=== PATIENT | female | born 1985 | race Caucasian/White ===

== ENCOUNTER 2023-05-07 11:03 | Outpatient (CLI) | payer OTHER, SELFPAY ==
--- NOTE | 2023-05-07 11:41 | ECG_ITS ---
Measurements Intervals [place] Rate: 56 P: 72 VT: 135 QRS: 62 QRSD: 91 T: 47 QT: 435 QTc: 422 Interpretive Statements SINUS BRADYCARDIA BORDERLINE ECG NO PREVIOUS ECG AVAILABLE FOR COMPARISON Electronically Signed On 05-07-2023 15:38:53 NAILHEAD PUNCHER by Edgard Buchanan D.O.
[2023-05-07 12:09] LABS: Hematocrit 41.8 % (37.0-47.0); Hemoglobin 14.3 g/dL (12.0-15.0); Mean Corpuscular HGB Conc 34.2 g/dl (32-36); Mean Corpuscular Hemoglobin 31.7 pg (26-34); Mean Corpuscular Volume 92.7 fl (80-100); Mean Platelet Volume 10.3 fl (7.4-10.4); Platelet Count Result 216 k/mm3 (150-375); Red Blood Count 4.51 M/mm3 (4.2-5.4); Red Cell Distribution Width 12.3 % (11.5-14.5); White Blood Count 4.4 K/mm3 (4.5-10.0)
[2023-05-07 12:14] LABS: Albumin Level 4.3 g/dL (3.5-5.1); Anion Gap 9 mmol/L (8-16); Blood Urea Nitrogen 18 mg/dL (7-17); Calcium 9.2 mg/dL (8.4-10.2); Carbon Dioxide 29 mmol/L (22-30); Chloride 102 mmol/L (98-107); Estimated Glomerular Filt Rate > 60; Glucose 73 mg/dL (65-110); Sodium 140 mmol/L (137-145)
[2023-05-07 12:18] LABS: Iron 129 ug/dL (37-170)
[2023-05-07 13:13] LABS: Prealbumin 24.8 mg/dL (17.6-36.0)
[2023-05-11 13:09] LABS: Vitamin B1 49 nmol/L (8-30)
== END 2023-05-07 11:04 | disposition home or self-care (01) ==
LOC: ANHLAB 11:08
PROVIDERS: Visit Provider Surgery Plastic and Reconstructive Surgery
DX: R63.4 Abnormal weight loss (principal); N64.81 Ptosis of breast
CPT/HCPCS: 36415; 80048; 82040; 83540; 84134; 84425; 85027; 93005

== ENCOUNTER 2023-05-13 03:10 | Day surgery (SDC) | payer OTHER, SELFPAY ==
[2023-05-03 17:28] VITALS: BMI 24.1
--- NOTE | 2023-05-03 17:41 | PC.NURSE ---
Report to the Outpatient Waiting Room, entrance under the green pavilion located off [facility], at time 07:00AM on date 05-13-23. Planned Procedure Time: 09:00AM. Time changes happen often and if your time is changed the preop area will call you the afternoon before. - You and your visitor will be asked to self-screen and do not enter if you have any COVID symptoms. - A mask is optional within the hospital at this time. Patients may have clear liquids (water, carbonated beverages, clear teas, apple juice) until 3 hours prior to surgery (06:00AM) with a maximum of 20 ounces. - No food from midnight until time of surgery Take the following medications with a SIP of water the morning of surgery: THYROID MED DO NOT STOP ANY OF YOUR OTHER PRESCRIPTION MEDICATIONS PRIOR TO SURGERY ?EXCEPT THE FOLLOWING Medications to discontinue per physician VITAMINS Date to take last dose 05-09-23 Please no make-up, nail belarusian, hairspray, perfume, deodorant, or body powder the day of surgery. No jewelry (including any body piercings) or valuables the day of surgery, leave them at home. Please take a shower or bath the night before, or the morning of, surgery with an antibacterial soap. Wear comfortable, loose fitting clothing. - Jewelry must be removed prior to entering the operating room. Rings and piercings that are not removed may be cut off. - The hospital will not accept responsibility for valuables. - Please leave all valuables, including medications, at home the day of surgery. If you are going home after surgery, a licensed explosives truck driver must drive you home. - NO public transportation without another adult if you receive anesthesia. - We recommend that an adult stay with you for 24 hours following discharge. - We also recommend that you do not drive, make important decision, drink alcoholic beverages, or take any drugs that were not prescribed by your health care provider for at least 24 hours after your discharge time. Follow any additional instructions given to you from your surgeon. If you or anyone in your household have experienced Covid symptoms in the past week, please notify your surgeon or the nurse liaison at the phone number below for possible testing. Telephone instructions given to PATIENT and asked if any additional questions and then verbalized understanding. Patient advised to call surgeon office or pre surgery nurse liaison [phone] if any additional questions.
[2023-05-13] VITALS (17 sets, daily range): BP systolic 99–134; BP diastolic 57–81; PULSE 51–96; RESP 12–18; TEMP 36.3–37; O2SAT 97–100
[2023-05-13] MEDS: LACTATED RINGERS 1,000 ML 30 ML IV CONT ×2 (07:50→15:17)
[2023-05-13 07:57] LABS: Urine Cotinine NEGATIVE
--- NOTE | 2023-05-13 09:03 | P.PNAN_ITS ---
Anes - Initial Pre Proc Eval Procedure: Operation Date: 05/13/23 09:00 Proposed Procedures p Yohana vega Abdominoplasty - Theo Randhawa MD s Bilateral Breast Augmentation with Mastopexy and Galaflex - Theo Randhawa MD Date/Time: 05/13/23 09:03 Surgeon: Theo Randhawa MD Pre Op Diagnosis: Skin Laxity, Breast Ptosis Patient Data Age: 38 Gender: F Height: 1.7 m Weight: 73.9 kg Last Vital Signs Temp 97.4 F L 05/13/23 07:30 Pulse 56 L 05/13/23 07:30 Resp 16 05/13/23 07:30 BP 118/65 05/13/23 07:30 Pulse Ox 100 05/13/23 07:30 O2 Del Method Room Air 05/13/23 07:30 Allergies Allergy/AdvReac Type Severity Reaction Status Date / Time No Known Allergies Allergy Verified 05/13/23 08:00 Home Medications Medication Instructions Recorded Confirmed Type chlorthalidone 25 mg tablet 25 mg PO DAILY 05/03/23 05/13/23 History cholecalciferol (vitamin D3) 1,250 1,250 mcg PO DAILY 05/03/23 05/13/23 History mcg (50,000 unit) tablet digestive enzymes 2 cap PO DAILY 05/03/23 05/13/23 History levothyroxine 175 mcg tablet 175 mcg PO DAILY 05/03/23 05/13/23 History magnesium gluconate 27 mg 27 mg PO BID 05/03/23 05/13/23 History magnesium (500 mg) tablet vitamin B complex 1 cap PO DAILY 05/03/23 05/13/23 History Laboratory Tests 05/13/23 07:41 Cotinine Negative Patient hx anesthesia problems: none Family hx anesthesia problems: none Results Review: All pre-operative results and documents have been reviewed as part of the pre- operative evaluation. PMF Social History Social History Smoking status: Never smoker Second hand tobacco smoke exposure: No Alcohol intake: current Drinks per week: 2 Substance use: never Substance use type: does not use Living arrangements: with family Spiritual care concerns: No Anes - Eval Final PreProcedure Day of Procedure 05/13/23 09:03 Patient weight: normal Heart: regular rate and rhythm Lungs: clear to auscultation Airway: Mallampati scale class II Neurological: alert and oriented Last oral intake: >/= 8 hours ASA classification: II Emergent: no Anesthetic plan: proceed Anesthesia type and monitoring: general ETT and standard monitoring Results Review: All pre-operative results and documents have been reviewed as part of the pre- operative evaluation. Informed Consent: The patient's anesthetic plan and its attendant risks and benefits were discussed with the patient/family/POA. Questions were solicited and answers provided to the satisfaction of the patient/family/POA.
--- NOTE | 2023-05-13 09:15 | WPDHPUPDATE1 ---
History and Physical Update Update Date/Time: 05/13/23 09:15 History and Physical has been reviewed, including an updated exam of the patient. There are NO changes in the patient's condition. Risks, benefits, and alternatives have been discussed and questions answered. Patient agrees to proceed with procedure.
--- NOTE | 2023-05-13 09:15 | W.PM.PROC2 ---
Procedure Note - Detailed Date of Procedure 05/13/23 Pre-op Diagnosis Skin Laxity, Breast Ptosis Post-op Diagnosis Same Procedure Performed 1. Bilateral augmentation mastopexy with Galaflex 2. Gregg abdominoplasty Surgeon Theo Randhawa MD Anesthesia General Findings Bilateral [place] SoftTouch Silicone implants 485 cc Right - REF# [id number] Left - REF# [id number] SN [id number] Galaflex REF# [id number] Tissue removed: 1278.2 grams Description of Procedure They are here today for the above procedures. Previously and again today the risks, benefits, alternatives were discussed in extensive detail. I wanted them to be very realistic about the risks involved as well as expectations. We discussed aftercare and what to monitor for. I was very upfront about the risks of wound breakdown leading to loss of skin, open wounds, and need for additional procedures with permanent abdominal deformity. We discussed DVT/PE risks and management. Made sure answered all of their questions to their satisfaction today and consent was obtained. Marked in the preoperative holding area with their verification. The patient was taken to the operating room placed supine on the operating table. Anesthesia was provided by anesthesiology. A Conti catheter was started. A surgical time-out was taken. Breast We cleansed the skin and 1% lidocaine and 0.25% Marcaine with epinephrine was used anesthetize as a field block. She was prepped and draped in a standard sterile fashion. Tegaderm nipple Cope were placed. A 15 blade used to make an incision just superior to the inframammary fold leaving a cusp of de-epithelized tissue at the t junction. Dissection was continued until the chest wall as identified. I incised the pectoralis major along its inferior border and completely released the inferior border leaving the medial border intact. I created a subpectoral pocket in the appropriate dimensions based on our preoperative planning for the implant. I then copiously irrigated with saline solution and verified a strict hemostasis. Next the use a triple antibiotic and Betadine containing solution to irrigate the pocket. I washed my gloves with the triple antibiotic and Betadine solution. We washed the implant immediately upon opening it with this solution and only opened it when we needed it. I used implant funnel and no-touch technique. The implant was introduced into the pocket using the funnel. Having verified positioning of the implant this was closed using 2-0 PDS. I tailor tacked the breast into position. Placed her in a sitting position. Verified the nipple-areolar location based on preoperative planning as well as intraoperative observations and measurements in full agreement. She was placed supine. I de-epithelialized the pedicle. I then removed the inferior central portion of the breast need making sure the implant was well protected. I elevated medial and lateral tissue flaps as well for planned closure. Galaflex was soaking in the betadine solution. Trimmed and sutured into place with 2-0 Vicryl. I closed along the IMF with 2-0 Stratafix. Along the vertical with 2-0 PDS. I closed around the areola with 3-0 strata fix. 3-0 Monocryl along the vertical. 3-0 Stratafix along the IMF. I finally closed everything with running subcuticular 4-0 Monocryl and tissue glue. Abdomen I placed the patient in a flexed position to verify the upper and lower markings would reach. I then placed supine. A thorough abdominal examination was completed. Stab incisions were made and tumescent solution infiltrated. A liposuction basket cannula was utilized to provide discontinuous undermining. A 10 blade was used to make the vertical incision. This was to the level of the fascia. A 10 blade was also utlizied to make the lower incision and elevate just what was clearly resectable. At the umbilicus this was left in place with a well vas
[2023-05-13] MEDS: LIDO 1%/EPINEPHRINE 1:100,000 50 ML VIAL 30 ML INFILTRATE (09:33)
[2023-05-13] MEDS: BUPIVACAINE/EPINEPHRINE 0.5% 50 ML VIAL 60 ML INFILTRATE (09:33)
[2023-05-13] MEDS: ceFAZolin 2 GM/D5W 50 ML 2 GM/50 ML BAG IVPB (09:33)
[2023-05-13] MEDS: LACTATED RINGERS IRRIG 1,000 ML, LIDOCAINE HCL 1% LOCAL INJ 50 ML, EPINEPHrine HCL INJ ... INFILTRATE (09:33)
[2023-05-13] MEDS: BUPivacaine HCL 0.25% PF 30 ML VIAL INFILTRATE (09:33)
[2023-05-13] MEDS: NACL 0.9% IRRIG POUR BOTTLE 900 ML, GENTAMICIN SULFATE INJ 160 MG, ceFAZolin 2 GM, POVI... IRRIGATION (09:33)
[2023-05-13] MEDS: TRANEXAMIC ACID 1,000MG/ISO100 1,000 MG/100 ML BAG 200 MG IVPB (09:47)
[2023-05-13] MEDS: ceFAZolin SODIUM 1 GM VIAL IV PUSH (13:26)
--- NOTE | 2023-05-13 15:15 | SUR.OPER ---
300mL of clear yellow urine drained from hopkins catheter
[2023-05-13] MEDS: SCOPOLAMINE 1.5 MG PATCH TRANSDERM (15:17)
[2023-05-13] MEDS: fentaNYL CITRATE INJ (*CRX) 100 MCG/2 ML VIAL 25 MCG IV PUSH ×7 (15:38→17:09)
[2023-05-13] MEDS: diphenhydrAMINE HCl INJ 50 MG/ML VIAL 25 MG IV PUSH (16:03)
[2023-05-13] MEDS: KETOROLAC 15 MG/ML VIAL (*BKC) IV PUSH (17:23)
[2023-05-13] MEDS: ONDANSETRON INJ 4 MG/2 ML VIAL IV PUSH (19:19)
--- NOTE | 2023-05-13 19:25 | PC.NURSE ---
This patient, Rachell Iyer, was received from PACU per wheelchair to room 289. Patient/family oriented to unit policies and routines
[2023-05-13] MEDS: oxyCODONE/ACETAMINOPHEN (*CRX) 5-325 MG TABLET PO (22:31)
[2023-05-13] MEDS: ENOXAPARIN 40 MG/0.4 ML SYRINGE SUB-Q (22:32)
[2023-05-14 00:38] VITALS: BP 113/63; PULSE 58; RESP 18; TEMP 37.2; O2SAT 98
[2023-05-14] MEDS: carisoprodoL (*CRX) 350 MG TABLET PO ×2 (00:38→07:03)
[2023-05-14] MEDS: KETOROLAC 10 MG TABLET PO ×2 (00:56→07:02)
[2023-05-14] MEDS: MORPHINE SULFATE (*CRX) 2 MG/ML INJ IV PUSH ×2 (03:44→09:31)
[2023-05-14] MEDS: oxyCODONE/ACETAMINOPHEN (*CRX) 5-325 MG TABLET PO (05:26)
[2023-05-14] MEDS: LEVOTHYROXINE SODIUM 75 MCG TABLET PO (07:02)
[2023-05-14] MEDS: LEVOTHYROXINE SODIUM 100 MCG TABLET PO (07:02)
[2023-05-14 07:08] VITALS: BP 100/56; PULSE 50; RESP 20; TEMP 36.8; O2SAT 96
--- NOTE | 2023-05-14 07:31 | WPDPN ---
Progress Note: A&P Assessment and Plan (1) Micromastia: Code(s): N64.82 - Hypoplasia of breast Status: Acute Assessment and Plan: Doing well after bilateral augmentation mastopexy and progressive tension abdominoplasty . Will discharge home. Today we had a lengthy discussion about the care. Activity limitations. What to monitor for. What is an emergency and when to dial 911 / proceed to the ER. This was a lengthy open ended conversation making sure they were well informed. Answered all their questions. They voiced a clear understanding. Will discharge home. Call with any questions or concerns in the meantime. (2) Breast ptosis: Code(s): N64.81 - Ptosis of breast Status: Acute (3) Skin laxity: Code(s): L57.4 - Cutis laxa senilis Status: Acute (4) History of weight loss: Code(s): Z87.898 - Personal history of other specified conditions Status: Acute Subjective Date/time seen: 05/14/23 07:31 Interval history: Doing well after bilateral augmentation mastopexy and progressive tension abdominoplasty. Ambulating. Pain controlled. No nausea / vomiting. No fevers / chills. No shortness of breast. No chest pain. No calf tenderness. Yesterday she was slow to wake up and elected to stay overnight. Has done well since. Review of Systems Review of Systems: All systems reviewed & are unremarkable except as noted in HPI and below Exam Narrative: Alert & Oriented NOD Respiratory unlabored Bilateral breasts are healing well. No signs of infection. No hematoma. No seroma. Good color and capillary refill. Abdomen healing well. No signs of infection. No hematoma. No seroma. Good color and capillary refill. No calf tenderness. Negative Bakari's Objective Data Vital Signs Vital Signs: Vital Signs - 24 hr 05/13/23 15:17 05/13/23 15:30 05/13/23 15:45 Temperature 36.9 C Pulse Rate 96 95 61 Respiratory Rate 18 18 12 Blood Pressure 128/75 133/78 133/73 Pulse Oximetry 100 100 100 Oxygen Delivery Simple Face Mask Simple Face Mask Simple Face Mask Oxygen Flow Rate 8 8 8 05/13/23 16:00 05/13/23 16:15 05/13/23 16:30 Temperature Pulse Rate 69 67 62 Respiratory Rate 12 12 12 Blood Pressure 119/80 134/68 127/73 Pulse Oximetry 100 100 99 Oxygen Delivery Simple Face Mask Room Air Room Air Oxygen Flow Rate 8 05/13/23 16:45 05/13/23 17:00 05/13/23 17:15 Temperature Pulse Rate 60 63 75 Respiratory Rate 12 13 18 Blood Pressure 129/80 129/72 132/81 Pulse Oximetry 99 98 98 Oxygen Delivery Room Air Room Air Room Air Oxygen Flow Rate 05/13/23 17:30 05/13/23 17:45 05/13/23 18:00 Temperature Pulse Rate 69 60 65 Respiratory Rate 12 12 12 Blood Pressure 118/71 122/70 118/72 Pulse Oximetry 98 97 98 Oxygen Delivery Room Air Room Air Room Air Oxygen Flow Rate 05/13/23 18:15 05/13/23 18:23 05/13/23 18:50 Temperature Pulse Rate 61 65 60 Respiratory Rate 14 16 14 Blood Pressure 116/67 99/66 L 100/65 Pulse Oximetry 98 Oxygen Delivery Room Air Room Air Room Air Oxygen Flow Rate 05/13/23 19:45 05/14/23 00:38 05/14/23 07:08 Temperature 37.0 C 37.2 C 36.8 C Pulse Rate 51 L 58 L 50 L Respiratory Rate 16 18 20 Blood Pressure 100/57 L 113/63 100/56 L Pulse Oximetry 99 98 96 Oxygen Delivery Oxygen Flow Rate Intake/Output Intake/Output: Intake & Output 05/11/23 05/12/23 05/13/23 05/14/23 23:59 23:59 23:59 23:59 Intake Total 750 700 Output Total 30 125 Balance 720 575 Meds/Results Medications: Active Medications Generic Name Dose Route Start Last Admin Trade Name Grahamq PRN Reason Stop Dose Admin Carisoprodol 350 mg 05/13/23 19:25 05/14/23 07:03 Carisoprodol (*Crx) 350 Mg Tablet PO 350 mg Q6HR DAYNE Administration Chlorthalidone 25 mg 05/14/23 09:00 Chlorthalidone 25 Mg Tablet PO DAILY DAYNE Diazepam 5 mg 05/13/23 18:48 Diazepam (*Crx) 5 Mg Tablet PO
--- NOTE | 2023-05-14 07:34 | PM.DS ---
DS: Admitting Diagnosis Discharge Date 05/14/2023 Admitting Diagnosis 1. Micromastia 2. Breast ptosis 3. Skin laxity 4. History weight loss DS: Discharge Diagnosis Discharge Diagnosis (1) Micromastia: Code(s): N64.82 - Hypoplasia of breast Status: Acute (2) Breast ptosis: Code(s): N64.81 - Ptosis of breast Status: Acute (3) Skin laxity: Code(s): L57.4 - Cutis laxa senilis Status: Acute (4) History of weight loss: Code(s): Z87.898 - Personal history of other specified conditions Status: Acute DS: Summary Hospital Course Hospital Course: Post-op bilateral augmentation mastopexy and progressive tension abdominoplasty patient was slow to wake and elected to stay overnight. Since this time has done well. Ambulating. Pain controlled. Tolerating diet. Will discharge home. Time Spent with Patient Time attestation: Total time spent providing and/or coordinating discharge services: Exam Narrative: Alert & Oriented NOD Respiratory unlabored Bilateral breasts are healing well. No signs of infection. No hematoma. No seroma. Good color and capillary refill. Abdomen healing well. No signs of infection. No hematoma. No seroma. Good color and capillary refill. No calf tenderness. Negative Bakari's DS: Data Data Completed and Pending Labs on day of discharge: Labs from last 24 hours 05/13/23 07:41 Cotinine Negative Discharge Plan Discharge Patient Disposition: Home, Self-Care Discharge Instructions: POST OPERATIVE DISCHARGE INSTRUCTIONS THEO RANDHAWA M.D. [facility] PLASTIC SURGERY [facility] [place] [address] [address] for 24 hours after anesthesia and while you are taking pain medication. Take all prescribed medication as directed Diet as tolerated. No lifting or activity that raises blood pressure for 48 hours. Regular walking / ambulation. May shower 24 hours after surgery. Once you shower do not take pain medication before showering as the combination of medication and heat may cause you to feel dizzy or pass out. No pools or tubs for 2 weeks. Slowly stand up straight as tolerated. No straining or lifting more than 20 pounds. If no bowel movement within 24 hours may use laxative. Call with any questions or concerns. Dressing Care: Continue abdominal binder / foam and surgical bra 23 hours per day. Remove the Scopolamine patch that was placed behind your ear in 72 hours or less. Wash your hands after touching. If you have any questions or concerns, please call the office . If it is after hours you will be directed to the tank wagon operator exchange. Shortness of breath, chest pain, or other medical emergency dial 911 / proceed to the Emergency Room. Remove the Scopolamine patch that was placed behind your ear in 72 hours or less. Wash your hands after touching. Stand Alone Forms: General Discharge Instructions Follow-up/Referrals: Theo Randhawa MD [Physician] - Other (Tomorrow 05/14/2023) Discharge Medications: Continued levothyroxine 175 mcg tablet 175 mcg PO DAILY Patient Comments: DOES NOT TAKE ON SUNDAYS digestive enzymes Capsule 2 cap PO DAILY chlorthalidone 25 mg tablet 25 mg PO DAILY vitamin B complex Capsule 1 cap PO DAILY magnesium gluconate 27 mg magnesium (500 mg) Tablet 27 mg PO BID cholecalciferol (vitamin D3) 1,250 mcg (50,000 unit) Tablet 1,250 mcg PO DAILY
[2023-05-14] MEDS: CHLORTHALIDONE 25 MG TABLET PO (08:28)
[2023-05-14] MEDS: DOCUSATE SODIUM 100 MG CAPSULE PO (08:28)
--- NOTE | 2023-05-14 10:45 | PC.NURSE ---
Patient's OSITO drain removed, slight resistance noted. Patient reported feeling small pop on left hand side but no bruising/swelling noted at site. Spoke with Dr. Hanson nurse about incident. Nurse agreed that as long as no swelling or significant changes in site were noted then patient was still okay to discharge. Spoke with patient about s/sx to watch for and to notify physicians office if any occur. Patient's drain site was reinforced with a 4x4 gauze and paper tape to minimize bleeding and patient was sent with extra supplies home.
--- NOTE | 2023-05-14 10:51 | WPDANESPN ---
Anes - Prog Note Post-Op Date/Time: 05/14/23 10:51 Cardiovascular status: normal Respiratory status: normal Airway patency: baseline Mental status: baseline Post-Op hydration status: normal Vital Signs: Last Vital Signs Temp 98.3 F 05/14/23 07:08 Pulse 50 L 05/14/23 07:08 Resp 20 05/14/23 07:08 BP 100/56 L 05/14/23 07:08 Pulse Ox 96 05/14/23 07:08 O2 Del Method Room Air 05/13/23 18:50 O2 Flow Rate 8 05/13/23 16:00 Pain Score (VAS): 2 I/O: Intake & Output 05/13/23 05/14/23 05/14/23 23:59 07:59 15:59 Intake Total 750 700 Output Total 30 125 Balance 720 575 Post-procedural complaints: none and other (pt verbalized difficulty with waking after surgery. states she did not wake up until nearly 2200.) Patient Feedback: Patient satisfied with anesthetic care.
== END 2023-05-14 10:52 | disposition home or self-care (01) ==
LOC: ANHSURGERY 15:35 → ANHOB2 19:19
PROVIDERS: PCP Family Medicine; Visit Provider Surgery Plastic and Reconstructive Surgery
PROC: (CPT 19325; principal; 2023-05-13 09:00)
PROC: (CPT 19325; 2023-05-13 09:00)
DX: Z41.1 Encounter for cosmetic surgery (principal); N64.81 Ptosis of breast; L57.4 Cutis laxa senilis; N64.82 Hypoplasia of breast; E03.9 Hypothyroidism, unspecified
CPT/HCPCS: 19325; 19316; 15777 ×2; 15830; 15847; 80307; 99199; A9270; J0171; J0690; J1100; J1170; J1200; J1580; J1650; J1885; J2250; J2270; J2405; J2704; J3010; J7120

== ENCOUNTER 2024-02-18 02:08 | Day surgery (SDC) | payer OTHER, SELFPAY ==
--- NOTE | 2024-02-11 16:01 | PC.NURSE ---
Report to the Outpatient Waiting Room, entrance under the green pavilion located off [facility], at time 0600 on date 02/18/24. Planned Procedure Time: 0730.? Time changes happen often and if your time is changed the preop area will call you the afternoon before. - You and your visitor will be asked to self-screen and do not enter if you have any COVID symptoms. Please call surgeon if you need to reschedule. - A mask is optional within the hospital at this time. Patients may have clear liquids (water, carbonated beverages, clear teas, apple juice) until 3 hours prior to surgery with a maximum of 20 ounces. 0430 - No food from midnight until time of surgery and no smoking - Infants may have breast milk until 4 hours before surgery, infant formula 6 hours prior to surgery. - Children will be allowed to drink immediately following surgery.? If applicable, please bring a bottle or sippy cup to assist with drinking. Juice, water, soda, and popsicles are readily available.? For infants on formula, please bring formula the day of surgery.? Pacifiers are allowed. Take only the following medications with a SIP of water on the morning of surgery levothryroxine DO NOT STOP ANY OF YOUR OTHER PRESCRIPTION MEDICATIONS PRIOR TO SURGERY EXCEPT THE FOLLOWING Medications to discontinue per physician multivitamins & supplements- hold for 3 days prior to surgery, hydrochlorothiazide- hold morning of surgery Please no make-up, nail estonian, hairspray, perfume, deodorant, or body powder the day of surgery.? No jewelry (including any body piercings) or valuables the day of surgery, leave them at home.? Please take a shower or bath the night before, or the morning of, surgery with an antibacterial soap.? Wear comfortable, loose fitting clothing.? Children are encouraged to wear pajamas. - Jewelry must be removed prior to entering the operating room.? Rings and piercings that are not removed may be cut off. - The hospital will not accept responsibility for valuables.? - Please leave all valuables, including medications, at home the day of surgery. If you are going home after surgery, a licensed transporter driver must drive you home.? - NO public transportation without another adult if you receive anesthesia. - We recommend that an adult stay with you for 24 hours following discharge. - We also recommend that you do not drive, make important decision, drink alcoholic beverages, or take any drugs that were not prescribed by your health care provider for at least 24 hours after your discharge time. For Pediatric surgeries, we recommend two adults accompany the child home. Follow any additional instructions given to you from your surgeon. Telephone instructions given to Patient- Rachell Iyer and asked if any additional questions and then verbalized understanding. Patient advised to call surgeon office or pre surgery nurse liaison [phone] if any additional questions.
[2024-02-11 16:09] VITALS: BMI 24.5
--- NOTE | 2024-02-17 10:57 | WPDANESEPPF ---
Anes - Initial Pre Proc Eval Procedure: Operation Date: 02/18/24 07:30 Proposed Procedures p Left Breast Popcorn Capsulorrhaphy, Revision Inframammary Fold, Possible Left Implant Exchange - Theo Randhawa MD Date/Time: 02/17/24 10:57 Surgeon: Theo Randhawa MD Pre Op Diagnosis: hx of breast augmentation Patient Data Age: 38 Gender: F Height: 1.7 m Weight: 70.9 kg Allergies Allergy/AdvReac Type Severity Reaction Status Date / Time No Known Allergies Allergy Verified 02/18/24 06:20 Home Medications Medication Instructions Recorded Confirmed Type cholecalciferol (vitamin D3) 1,250 1,250 mcg PO DAILY 05/03/23 02/18/24 History mcg (50,000 unit) tablet digestive enzymes 2 cap PO DAILY 05/03/23 02/18/24 History levothyroxine 175 mcg tablet 175 mcg PO DAILY 05/03/23 02/18/24 History magnesium gluconate 27 mg 27 mg PO BID 05/03/23 02/18/24 History magnesium (500 mg) tablet vitamin B complex 1 cap PO DAILY 05/03/23 02/18/24 History hydrochlorothiazide 50 mg tablet 50 mg PO DAILY 02/11/24 02/18/24 History Patient hx anesthesia problems: post op nausea/vomiting (requests NO scope patch) Family hx anesthesia problems: none Results Review: All pre-operative results and documents have been reviewed as part of the pre-operative evaluation. [facility] Past Medical History Medical History (Updated 02/17/24 @ 10:58 by Lui Duckworth DO) Hypothyroidism Vocal cord granuloma Surgical History Surgical History (Updated 02/17/24 @ 10:58 by Lui Duckworth DO) History of appendectomy History of History of cholecystectomy History of hysterectomy Social History Social History Smoking status: Never smoker Second hand tobacco smoke exposure: No Alcohol intake: current Drinks per week: 1 Substance use: never Substance use type: does not use Living arrangements: with family Spiritual care concerns: No Anes - Eval Final PreProcedure Day of Procedure 02/17/24 10:57 Patient weight: normal Heart: regular rate and rhythm Lungs: clear to auscultation Airway: Mallampati scale class 1 Neurological: alert and oriented Last oral intake: >/= 8 hours ASA classification: II Emergent: no Anesthetic plan: proceed Anesthesia type and monitoring: general LMA and standard monitoring Results Review: All pre-operative results and documents have been reviewed as part of the pre-operative evaluation. Informed Consent: The patient's anesthetic plan and its attendant risks and benefits were discussed with the patient/family/POA. Questions were solicited and answers provided to the satisfaction of the patient/family/POA.
[2024-02-18] VITALS (9 sets, daily range): BP systolic 107–118; BP diastolic 52–79; PULSE 50–85; RESP 12–18; TEMP 36.1; O2SAT 98–100
[2024-02-18] MEDS: LACTATED RINGERS 1,000 ML 30 ML IV CONT ×2 (06:47→09:06)
[2024-02-18 07:00] LABS: Anion Gap 8 mmol/L (4-12); Blood Urea Nitrogen 17 mg/dL (7-17); Calcium 8.9 mg/dL (8.4-10.2); Carbon Dioxide 31 mmol/L (22-30); Chloride 98 mmol/L (98-107); Estimated CRCL calculation 72 ml/min; Estimated Glomerular Filt Rate > 60; Glucose 88 mg/dL (65-110); Potassium 3.3 mmol/L (3.4-5.0); Sodium 137 mmol/L (137-145)
--- NOTE | 2024-02-18 07:15 | P.OP_ITS ---
Procedure Note - Detailed Date of Procedure 02/18/24 Pre-op Diagnosis hx of breast augmentation Post-op Diagnosis Same Procedure Performed Left breast IMF revision Left breast vertscar revision Surgeon Theo Randhawa MD Anesthesia General Description of Procedure She is here today with left breast settled below IMF after previous augmentation mastopexy with Galaflex and subtle left subareolar laxity. She would like to proceed with revision. Preoperatively the risks, benefits, alternatives were discussed in extensive detail. I wanted to be very realistic about the risks involved as well as expectations. I was clear about how we could actually make her worse. Answered all questions to satisfaction. Voiced a clear understanding. Consent obtained. She was taken the operating room placed supine on the operating room table. Anesthesia provided by anesthesiology and prepped and draped in a standard sterile fashion. Surgical time-out was taken. 1% lidocaine and 0.25% Marcaine with epinephrine was used to provide a field block. Tegaderm nipple winslow were placed. Fifteen blade used to excise the previous IMF scars. Dissection was continued down until the capsules were identified and entered. With her supine the implant pocket had room and was retracted from the IMF so popcorn capsulorraphy was completed of IMF to adjust as well as reinforced with 2-0 PDO Quill. She was placed sitting to verify position. I then irrigated with Betadine containing solution. This was closed with 2-0 PDS followed by 3-0 Monocryl and a running subcuticular 4-0 Monocryl followed by tissue glue. The vertical revision was excited with a 10 blade. Closed with 3-0 Monocryl, 4- 0 Monocryl and tissue glue. Dressings were placed. She was woken taken to the PACU without difficulty. All instrument sponge counts were correct at the end of the case. Estimated Blood Loss 10 Drains No Packing No Pathology None sent Complications No immediate complications Condition Stable Disposition PACU
--- NOTE | 2024-02-18 07:15 | WPDHPUPDATE1 ---
History and Physical Update Update Date/Time: 02/18/24 07:15 History and Physical has been reviewed, including an updated exam of the patient. There are NO changes in the patient's condition. Risks, benefits, and alternatives have been discussed and questions answered. Patient agrees to proceed with procedure.
[2024-02-18] MEDS: TRANEXAMIC ACID 1,000MG/ISO100 1,000 MG/100 ML BAG 200 MG IVPB (07:22)
[2024-02-18] MEDS: ceFAZolin 2 GM/D5W 50 ML 2 GM/50 ML BAG IVPB (07:33)
[2024-02-18] MEDS: LIDO 1%/EPINEPHRINE 1:100,000 20 ML VIAL 15 ML INFILTRATE (07:50)
[2024-02-18] MEDS: BUPivacaine HCL 0.25% PF 30 ML VIAL 15 ML INFILTRATE (07:50)
[2024-02-18] MEDS: NACL 0.9% IRRIG POUR BOTTLE 900 ML, GENTAMICIN SULFATE INJ 160 MG, ceFAZolin 2 GM, POVI... IRRIGATION (08:02)
[2024-02-18] MEDS: ONDANSETRON INJ 4 MG/2 ML VIAL IV PUSH (08:31)
[2024-02-18] MEDS: fentaNYL CITRATE INJ (*CRX) 100 MCG/2 ML VIAL 25 MCG IV PUSH ×7 (08:32→09:11)
[2024-02-18] MEDS: MEPERIDINE HCL INJ (*CRX) 50 MG/ML AMPUL 12.5 MG IV PUSH (08:54)
[2024-02-18] MEDS: oxyCODONE HCL (*CRX) 5 MG TAB IR PO (09:57)
== END 2024-02-18 10:35 | disposition home or self-care (01) ==
PROVIDERS: PCP Family Medicine; Visit Provider Surgery Plastic and Reconstructive Surgery
PROC: (CPT 19342; principal; 2024-02-18 07:30)
DX: N64.89 Other specified disorders of breast (principal); E03.9 Hypothyroidism, unspecified
CPT/HCPCS: 19370; 11406; 12034; 36415; 80048; A9270; J0690; J1100; J1580; J1596; J2175; J2250; J2405; J2704; J3010; J7120